=== PATIENT | female | born 1985 | race Caucasian/White ===

== ENCOUNTER → 2024-02-01 08:11 | Outpatient (CLI) | payer SELFPAY ==
--- NOTE | 2024-02-01 | DI.ECHO.S_ITS ---
[facility] : : [address] : : [place] : : [id number] : : Phone: [phone] Echocardiogram Report + + :Name: DELILAH BYRD Study Date: 02/01/2024 Height: 66 in : :[facility] ReadingLocation: Weight: 154 lb : : Gender: Female BSA: 1.8 m2 : :: 1985 Age: 38 yrs BP: 123/88 mmHg: :Reason For Study: FAMILY HISTORY OF ISCHEMIC HEART DISEASE : :Ordering Physician: MORAIMA CALDERA Performed By: Ani Jennings : :Referring: MORAIMA CALDERA : + + Interpretation Summary 1. The left ventricular contractility is mildly compromised. Estimate ejection fraction is approximately 45 to 50% with mildly hypokalemic and paradoxical septal motion. No LVH. Normal diastolic function. 2. The right ventricular contractility is normal. 3. All cardiac chambers are of normal size. 4. No significant valvular abnormalities. 5. No obvious intracardiac shunts. 6. No obvious intracardiac masses nor thrombi. 7. No hemodynamically significant pericardial effusion. 8. Low right-sided filling pressures. Conclusion: Mildly compromised left ventricular systolic function with no significant valvular nor structural abnormalities. Procedure: A two-dimensional transthoracic echocardiogram with color flow and Doppler was performed. The study quality was technically adequate. There is no prior echocardiogram noted for this patient. The patient had a bundle branch block rhythm during the exam. The heart rate ranged between 72-86 bpm during the study. Left Ventricle: The left ventricle is normal in size and wall thickness. The ejection fraction is estimated to be 45-50%. There are regional wall motion abnormalities as specified. Right Ventricle: The right ventricle is normal in size and function. Atria: The left atrial size is normal. Right atrial size is normal. There is no Doppler evidence for an interatrial shunt. Mitral Valve: The mitral valve is normal in structure and function. There is trace mitral regurgitation. Aortic Valve: The aortic valve is trileaflet. The aortic valve opens well. There is no aortic valve stenosis. No aortic regurgitation is present. Tricuspid Valve: The tricuspid valve is normal in structure and function. There is trace tricuspid regurgitation. Pulmonary artery pressures cannot be estimated because of the lack of a measurable TR jet velocity. Pulmonic Valve: The pulmonic valve leaflets are thin and pliable; valve motion is normal. There is no pulmonic valvular regurgitation. Great Vessels: The aortic root is normal size. The dimensions of the ascending aorta are normal. The IVC is of normal diameter and collapses greater than 50% with a sniff. This suggests a low right atrial pressure of 3 mm Hg. Pericardium/ Pleura There is no pericardial effusion. There is no pleural effusion. MMode/2D Measurements & Calculations LVIDd: 4.9 cm LVOT diam: 2.1 cm LVIDs: 3.6 cm Ao root diam: 3.0 cm FS: 25.1 % Ao Arch Diam (Prox Trans): 2.3 cm EPSS: 0.95 cm IVSd: 0.66 cm LVPWd: 0.70 cm LV graham. diameter/BSA (cm/m^2): 2.7 LV sys. diameter/BSA (cm/m^2): 2.0 LA A2 area: 16.8 cm2 RA long axis: 3.2 cm LA A4 area: 13.8 cm2 RA area: 9.6 cm2 LA length (vol): 4.3 cm RA vol: 24.2 ml LA vol: 45.8 ml RA : 13.5 ml/m2 LA vol index: 25.6 ml/m2 IVC diam: 2.0 cm RVD1 (basal): 3.6 cm TAPSE: 2.2 cm Doppler Measurements & Calculations Ao V2 max: 125.6 cm/sec LVOT Max Harjeet: 93.3 cm/sec Ao V2 mean: 95.2 cm/sec LV V1 max P.5 mmHg Ao max P.3 mmHg LV V1 VTI: 17.9 cm Ao mean P.9 mmHg BARBARA(I,D): 2.5 cm2 Ao V2 VTI: 24.6 cm BARBARA(V,D): 2.5 cm2 sev ratio: 0.73 BARBARA indexed to BSA (cm^2/m^2): 1.4 MV E max harjeet: 74.9 cm/sec PA V2 max: 98.3 cm/sec MV A max harjeet: 79.8 cm/sec PA V2 mean: 71.7 cm/sec MV E/A: 0.94 PA mean P.2 mmHg Med Peak E' Harjeet: 10.1 cm/sec PA pr(Accel): 41.3 mmHg E/E' med: 7.4 Lat Peak E' Harjeet: 14.0 cm/sec E/E' lat: 5.4 E/e' average: 6.4 MV dec time: 0.22 sec SV(LVOT): 60.6 ml Reading Physician:
== END ==
PROVIDERS: PCP Nurse Practitioner Family; Referring Provider Internal Medicine; Visit Provider Internal Medicine
DX: Z13.6 Encounter for screening for cardiovascular disorders (principal); Z82.49 Family history of ischemic heart disease and other diseases of the circulatory system
CPT/HCPCS: 93306